=== PATIENT | female | born 1975 | race African-American/Black ===

== ENCOUNTER → 2016-10-31 | Outpatient (CLI) | payer BC ==
[~2016-10-31] MED LIST: ACCUPRIL PO; ACCUPRIL40 MG PO; ALBUTEROL17 GM INH; ASPIRIN PO; ASPIRIN81 M1 PO; ASPIRINEC PO; BACTRIM DS TABL1 TAB PO; BP MED; DOXYCYCLINE PO; FLAGYL PO; HYDROCHLOROTHIA25 MG PO; NAPROSYN375 MG PO; PHENERGAN W/CO120 ML PO; PREDNISONE PO; PRILOSEC PO; PYRIDIUM PO; WATER PILL; [UNRECOGNIZED DRUG - REMARK] PO
--- NOTE | ~2016-10-31 | CR18 ---
[facility] A Service of [facility] RADIOLOGY TEXT RESULTS PATIENT: AWILDA ESCOBAR LOCATION: [facility] : 75 UNIT #: [id number] AGE: [address]: KYMBERLY PARNELL MD SEX: F ORDER DR: [id number] [place], [place] [address] [id number] O MR#: [id number] Acc #: [id number] NAME: AWILDA ESCOBAR : 1975 SEX: F STUDY DATE/TIME: 10/31/2016 19:53 UNIT: [facility] ROOM: STUDY DESCRIPTION: CR Ankle 2 Views Rt Attending Physician: Kymberly Parnell M.D. Ordering Physician: Kymberly Parnell M.D. Primary Care Physician: Kymberly Parnell M.D. MEDICAL IMAGING REPORT This report is preliminary unless electronic signature is present EXAM Right ankle 3 views HISTORY Posterior ankle pain x3 months. COMPARISON Right ankle films 04/17/2015 FINDINGS 3 views of the right ankle demonstrates no fracture or dislocation. Degenerative ossification seen at the Achilles tendon insertion. Small plantar calcaneal spur. No soft tissue swelling. No erosions. Ankle mortise appears maintained. Subtalar joint unremarkable. IMPRESSION There is a small amount of hypertrophic change along the lateral margin of the distal tibia in the region of the interosseous membrane. IMPRESSION No significant right ankle pathology identified. Dictated by... Reginald Lafleur M.D. THIS IS AN ELECTRONICALLY VERIFIED REPORT Reginald Lafleur M.D. at 11/01/2016 2:39 PM ANDRZEJ/pina TD: 11/01/2016 06:46 JOB #: [id number] MEDICAL IMAGING REPORT [facility] A Service [facility] RADIOLOGY TEXT RESULTS PATIENT: AWILDA ESCOBAR LOCATION: [facility] : 75 UNIT #: [id number] AGE: [address]: KYMBERLY PARNELL MD SEX: F ORDER DR: Page 1 of 1 COPY
== END | disposition home or self-care (01) ==
LOC: CRAD 19:35
DX: M25.571 Pain in right ankle and joints of right foot (principal)
CPT/HCPCS: 73600

== ENCOUNTER → 2017-03-17 | Outpatient (CLI) | payer BC ==
--- NOTE | ~2017-03-17 | CR230 ---
[facility] A Service of [facility] RADIOLOGY TEXT RESULTS PATIENT: AWILDA DENT LOCATION: [facility] : 75 UNIT #: [id number] AGE: [address]: KYMBERLY PARNELL MD SEX: F ORDER DR: [id number] [facility] [address] [place], [place] [address] [id number] O MR#: [id number] Acc #: [id number] NAME: AWILDA DENT : 1975 SEX: F STUDY DATE/TIME: 03/17/2017 12:52 UNIT: [facility] ROOM: STUDY DESCRIPTION: CR Shoulder Min 2 View Rt Attending Physician: Kymberly Parnell M.D. Referring Physician: Kymberly Parnell M.D. Ordering Physician: Kymberly Parnell M.D. Primary Care Physician: Kymberly Parnell M.D. MEDICAL IMAGING REPORT This report is preliminary unless electronic signature is present EXAM Right shoulder 3 views 03/17/2017 HISTORY Right shoulder pain and limited range of motion for 5 months. No known injury. FINDINGS 3 views of the right shoulder demonstrate no fracture. There is minimal osteophytic spurring along the lateral aspect of the humeral head, as well as minimal subchondral cyst formation. The joint spaces are normally maintained within the glenohumeral and acromioclavicular joints. The bones are normally mineralized. There is no soft tissue abnormality. IMPRESSION Minimal degenerative change involving the right humeral head. No acute abnormality. Dictated by... Miguel Geiger M.D. THIS IS AN ELECTRONICALLY VERIFIED REPORT Miguel Geiger M.D. at 03/18/2017 7:14 AM NATE/tianna TD: 03/18/2017 00:39 JOB #: [id number] MEDICAL IMAGING REPORT Page 1 of 1 COPY
== END | disposition home or self-care (01) ==
LOC: CRAD 12:28
DX: M25.511 Pain in right shoulder (principal); M19.011 Primary osteoarthritis, right shoulder
CPT/HCPCS: 73030